=== PATIENT | male | born 1980 | race Caucasian/White ===

== ENCOUNTER → 2018-10-04 14:09 | Outpatient (POV) | payer OTHER, SELFPAY | PROVIDERS: Visit Provider Internal Medicine Nephrology | DX: Z00.00 Encounter for general adult medical examination without abnormal findings (principal) ==

== ENCOUNTER → 2018-12-24 09:43 | Outpatient (CLI) | payer OTHER, SELFPAY ==
--- NOTE | 2018-12-24 09:46 | US_ITS ---
PROCEDURE: US KIDNEY CLINICAL INDICATION: CKD STAGE III COMPARISON: No exams were available for comparison FINDINGS: The right kidney is 10 x 4.5 x 4.7 cm. No hydronephrosis cortical thinning or abnormal echogenicity. The left kidney is 10 x 5.5 x 4.8 cm. No hydronephrosis mass cortical thinning or abnormal echogenicity. Bilateral renal blood flow noted. IMPRESSION: Unremarkable bilateral renal ultrasound Dictated by: Justo Francois MD 12/24/2018 18:42 Electronically signed by Justo Francois MD in [place] 12/24/2018 18:42
== END ==
PROVIDERS: PCP Emergency Medicine; Visit Provider Internal Medicine Nephrology
DX: N18.3 Chronic kidney disease, stage 3 (moderate) (principal)
CPT/HCPCS: 76770

== ENCOUNTER → 2019-03-07 14:34 | Outpatient (POV) | payer OTHER, SELFPAY ==
[2019-03-07 16:25] LABS: Microscopic, Urine URINE MICROSCOPIC (MICROSCOPIC)
[2019-03-07 16:49] LABS: Appearance,Urine CLEAR (Clear); Bilirubin,Urine Negative (Negative); Blood, Urine TRACE-L (Negative); Color,Urine YELLOW (Yellow); Glucose,Urine (UA) 2+ (Negative); Ketones,Urine Negative (Negative); Leukocyte Esterase,Urine Negative (Negative); Nitrate,Urine Negative (Negative); PH,Urine 5.5 (5.0-8.5); Protein,Urine 3+ (Negative); Specific Gravity, Urine 1.025 (1.005-1.030); Urobilinogen,Urine 0.2 EU/dl (0.2)
[2019-03-07 16:51] LABS: Creatinine,Urine Random 182 mg/dL (20-320)
[2019-03-07 17:15] LABS: Total Protein,Urine Random 258.4 mg/dL (0.0-11.9)
[2019-03-07 17:55] LABS: Amorphous Sediment,Urine 1+ /lpf; RBC,Urine Occasional #/hpf (0-3); Squamous Epithelial Cell,Urine Occasional #/hpf (0-5)
[2019-03-07 18:33] LABS: Albumin Level 3.3 gm/dL (3.4-5.0); Anion Gap 15.3 mEq/L (5-15); Blood Urea Nitrogen 19 mg/dL (7-18); Calcium 8.7 mg/dL (8.5-10.1); Carbon Dioxide 24 mmol/L (21.0-32.0); Chloride 102 mmol/L (98-107); Creatinine,Serum 2.37 mg/dL (0.70-1.30); Estimated Glomerular Filt Rate 31 ml/min (>60); GFR (African American) 38 ML/MIN (>60); Glucose 187 mg/dL (74-106); Phosphorous 3.2 mg/dL (2.4-4.9); Potassium 4.3 mmoL/L (3.5-5.1); Sodium 137 mmol/L (136-145)
== END ==
PROVIDERS: Visit Provider Internal Medicine Nephrology
DX: N18.3 Chronic kidney disease, stage 3 (moderate) (principal)
CPT/HCPCS: 36415; 80069; 81001; 82570; 84155